=== PATIENT | female | born 1965 | race Caucasian/White ===

== ENCOUNTER → 2020-05-30 | Outpatient (CLI) | payer BC ==
[2020-05-30 09:24] LABS: HEMOGLOBIN 13.9 gm/dl (12.3-15.3); RED BLOOD COUNT 4.29 M/UL (4.00-5.10); WHITE BLOOD COUNT 7.3 K/UL (4.5-11.0)
[2020-05-30 09:54] LABS: BUN/CREATININE RATIO 20 (0-10)
== END ==
LOC: EXRD 05-17 08:00 → US 08:30
PROVIDERS: Internal Medicine
DX: Z13.1 Encounter for screening for diabetes mellitus (principal); Z13.220 Encounter for screening for lipoid disorders; E55.9 Vitamin D deficiency, unspecified; G43.909 Migraine, unspecified, not intractable, without status migrainosus; Z79.899 Other long term (current) drug therapy; R10.13 Epigastric pain; K83.8 Other specified diseases of biliary tract
CPT/HCPCS: 36415; 76700; 80053; 80061; 84439; 84443; 85025

== ENCOUNTER → 2020-06-12 | Outpatient (CLI) | payer BC | LOC: MAMO 13:33 | DX: Z12.31 Encounter for screening mammogram for malignant neoplasm of breast (principal) | CPT/HCPCS: 77063; 77067 ==

== ENCOUNTER → 2020-07-19 | Outpatient (CLI) | payer BC ==
[2020-07-20 16:14] LABS: IMMUNOGLOBULIN A, QN, SERUM 330 mg/dL (87-352); T-TRANSGLUTAMINASE (TTG) IGA <2 U/mL (0-3); T-TRANSGLUTAMINASE (TTG) IGG <2 U/mL (0-5)
== END ==
LOC: MRI 09:36
PROVIDERS: Internal Medicine Gastroenterology
DX: R63.4 Abnormal weight loss (principal); K83.8 Other specified diseases of biliary tract; Z80.0 Family history of malignant neoplasm of digestive organs; Q44.1 Other congenital malformations of gallbladder; K76.89 Other specified diseases of liver
CPT/HCPCS: 36415; 74183; 82784; 83690; A9577

== ENCOUNTER → 2021-05-09 | Outpatient (CLI) | payer BC ==
[2021-05-09 09:00] LABS: HEMOGLOBIN 12.6 gm/dl (12.3-15.3); RED BLOOD COUNT 4.06 M/UL (4.00-5.10); WHITE BLOOD COUNT 6.1 K/UL (4.5-11.0)
[2021-05-10 08:14] LABS: VITAMIN D, 25-HYDROXY 15.8 ng/mL (30.0-100.0)
[2021-05-10 09:15] LABS: A/G RATIO 1.5 (1.2-2.2); ALKALINE PHOSPHATASE, S 63 IU/L (44-121); ALT (SGPT) 9 IU/L (0-32); AST (SGOT) 17 IU/L (0-40); BILIRUBIN, TOTAL 0.3 mg/dL (0.0-1.2); BUN 15 mg/dL (6-24); BUN/CREATININE RATIO 20 (9-23); CALCIUM, SERUM 9.7 mg/dL (8.7-10.2); CARBON DIOXIDE, TOTAL 24 mmol/L (20-29); CHLORIDE, SERUM 104 mmol/L (96-106); CHOLESTEROL, TOTAL 177 mg/dL (100-199); CREATININE, SERUM 0.74 mg/dL (0.57-1.00); EGFR IF AFRICN AM 106 (>59); EGFR IF NONAFRICN AM 92 (>59); FOLATE (FOLIC ACID), SERUM 9.5 ng/mL (>3.0); GLOBULIN, TOTAL 2.8 g/dL (1.5-4.5); GLUCOSE, SERUM 90 mg/dL (65-99); HDL CHOLESTEROL 65 mg/dL (>39); LDL CHOLESTEROL CALC 95 mg/dL (0-99); LDL/HDL RATIO 1.5 ratio (0.0-3.2); POTASSIUM, SERUM 4.5 mmol/L (3.5-5.2); PROTEIN, TOTAL, SERUM 6.9 g/dL (6.0-8.5); SODIUM, SERUM 142 mmol/L (134-144); T. CHOL/HDL RATIO 2.7 ratio (0.0-4.4); TRIGLYCERIDES 93 mg/dL (0-149)
== END ==
LOC: LAB 08:22
PROVIDERS: Internal Medicine
DX: Z13.220 Encounter for screening for lipoid disorders (principal); Z13.1 Encounter for screening for diabetes mellitus; Z51.81 Encounter for therapeutic drug level monitoring; G43.909 Migraine, unspecified, not intractable, without status migrainosus; E55.9 Vitamin D deficiency, unspecified; D75.89 Other specified diseases of blood and blood-forming organs; R53.83 Other fatigue; Z79.899 Other long term (current) drug therapy
CPT/HCPCS: 36415; 80053; 80061; 82607; 82746; 84439; 84443; 85025

== ENCOUNTER → 2021-06-13 | Outpatient (CLI) | payer BC | LOC: MAMO 05-30 08:30 → EXRD 05-30 09:30 → MAMO 07:33 | DX: Z12.31 Encounter for screening mammogram for malignant neoplasm of breast (principal); Z13.820 Encounter for screening for osteoporosis | CPT/HCPCS: 77063; 77067; 77080 ==